=== PATIENT | male | born 1945 | race Caucasian/White ===

== ENCOUNTER → 2017-08-22 | Outpatient (CLI) | payer MEDICARE, OTHER ==
[~2017-08-22] MED LIST: ALBU90OI6 INH; ALLO100 PO; ASPI81CH PO; Amlodipine Besyl5 MG PO; Benicar40 MG; LOSA50 PO; MELO7.5 PO; METO50 PO; METO50ER PO; MUPI2TO TOP; TIOT18; TRAZ100 PO; TUDORZA PRESS400 MCG IH
[2017-08-22 14:25] LABS: Stool Occult Blood Guaiac 1 Neg (Neg)
[2017-08-22 14:26] LABS: Stool Occult Blood Guaiac 2 Neg (Neg); Stool Occult Blood Guaiac 3 Neg (Neg)
== END | disposition home or self-care (01) ==
LOC: LAB 06:00 → LAB SHORT 06:00 → LAB FUT 08-18 09:25
PROVIDERS: Internal Medicine
DX: D64.9 Anemia, unspecified (principal)
CPT/HCPCS: 82272